=== PATIENT | male | born 1980 | race Caucasian/White ===

== ENCOUNTER 2017-04-15 08:09 | Day surgery (SDC) | payer OTHER ==
--- NOTE | 2017-04-11 12:17 | HP ---
PREOPERATIVE HISTORY AND PHYSICAL: DATE OF ADMISSION/SURGERY: 04/15/17 DATE OF OFFICE VISIT/ENCOUNTER: 04/06/17 ATTENDING SURGEON: Delicia Howe MD * (DICTATED BY BERRY JASSO) PROCEDURE: Right small finger excision mass. CHIEF COMPLAINT: Mass on right small finger. HISTORY OF PRESENT ILLNESS: This is a 36-year-old male who complains of a lump on the dorsal aspect of his right small finger. It has been present for approximately a year. He does not recall any specific injury. It is not painful, but it has caused the deformity of his finger nail and he would like to have it removed. The mass has grown overtime. He denies any associated numbness or tingling. He has consented to proceed with a right small finger excision mass. PAST MEDICAL HISTORY: Attention deficit disorder. PAST SURGICAL HISTORY: Right wrist ORIF about 10 years ago. CURRENT MEDICATIONS: 1. Ritalin 60 mg. 2. Citalopram hydrobromide. ALLERGIES: No known drug allergies. FAMILY MEDICAL HISTORY: Noncontributory. SOCIAL HISTORY: The patient is employed at the [employer] in [employer]. He is a smoker. He smokes less than a half pack a day and has done so for the past few years. He denies recreational drug use. He does drink alcohol on occasion. REVIEW OF SYSTEMS: General: Negative for fevers, chills, or night sweats. No known anesthesia problems. HEENT: Negative for headache, lightheadedness, or syncopal episodes. Integumentary: Negative for abrasions, lesions, and open wounds. Cardiothoracic: Negative for hypertension, chest pain, palpitations, and edema. Pulmonary: Negative for shortness of breath with exertion, chronic cough, or COPD. GI: Negative for nausea, vomiting, diarrhea, constipation, or GERD. : Negative for nocturia, urinary frequency or urgency, history of UTIs , or kidney problems. Musculoskeletal: Positive for current complaint. Neurological: Positive for anxiety/depression. History of seizure as an . Negative for paresthesias, numbness, or history of stroke. Endocrine: Negative for diabetes or thyroid issues. Hematologic: Negative for easy bruising, anemia, excessive bleeding, or history of DVT. Infectious Disease: Positive for history of MRSA a few years ago in his umbilicus. Negative for hepatitis C or HIV. PHYSICAL EXAMINATION GENERAL: Well-developed, well-nourished, 36-year-old male in no acute distress. VITAL SIGNS: Height 6 feet 5 inches, weight 374 pounds, blood pressure 132/80, we do not have a pulse rate. HEENT: Normocephalic, atraumatic. Pupils are equal, round, and reactive to light and accommodation. NECK: Supple. No palpable lymph nodes. Throat is clear. PULMONARY: Lungs are clear to auscultation bilaterally. No wheezes, rales, or rhonchi. CARDIOVASCULAR: Regular rate and rhythm. S1, S2. No murmurs, rubs, or gallops. No edema. ABDOMEN: Positive bowel sounds. Soft, nontender. MUSCULOSKELETAL: On exam of his right small finger, he has a large cystic mass just proximal to the finger nail. It has caused nail deformity. He has active flexion and extension at DIP joint. The cyst is not particularly tender to palpation. Skin is intact. Neurovascular function is intact. NEUROLOGICAL: Alert and oriented x3. Cranial nerves II through XII are intact. Sensation is intact to light touch. IMAGING STUDIES: X-rays of the right small finger appear normal. IMPRESSION: Ganglion cyst, right small finger. PLAN: The patient is scheduled to undergo a right small finger excision mass with Dr. Howe on 04/15/17. He will return to the office 10 to 14 days postop for followup and suture removal. A prescription for Ultracet was e-scribed to the patient's pharmacy for postoperative pain management. BERRY JASSO [id number]/[facility] #: [id number] [place]
[~2017-04-15 08:09] MED LIST: Buffered Lidocaine 0.9% SYRIN* 5 ML/SYR SYRINGE INTRADERM ONE
[2017-04-15] MEDS ORDERED: Lidocaine 1% INJ* 10 MG/ML 30 ML SDV ONE (09:28)
[2017-04-15] MEDS ORDERED: fentaNYL* 50 MCG/ML 2 ML VIAL (100 MCG VIAL) ONE (09:29)
[2017-04-15] MEDS ORDERED: Propofol* 10 MG/ML 20 ML BTL IV PUSH ONE (09:31)
[2017-04-15] MEDS ORDERED: Midazolam* 1 MG/ML 2 ML VIAL (2 MG) ONE (09:31)
[2017-04-15] MEDS ORDERED: Naloxone* 0.4 MG/ML 1 ML VIAL IV PRN (09:53)
[2017-04-15 10:14] VITALS: BP 147/75
--- NOTE | 2017-04-16 11:15 | OP ---
DATE OF OPERATION: 04/15/17 [facility] DATE OF : 78 SURGEON: Delicia Howe MD SOUND RECORDING TECHNICIAN: BERRY Nicholson ANESTHESIA: Local MAC. PRE-OP DIAGNOSIS: Right small finger mass. POST-OP DIAGNOSIS: Right small finger mass. OPERATIVE PROCEDURE: Removal of right small finger mass. ESTIMATED BLOOD LOSS: Zero. TOURNIQUET TIME: About 15 minutes. INDICATIONS FOR PROCEDURE: Diomedes is a 36-year-old man with a painful mass on the dorsal aspect of his right small finger just distal to the DIP joint, he presents for removal. DESCRIPTION OF PROCEDURE: The patient was brought to the operating room, was given a sedation anesthetic and a digital block with 10 cc of 1% plain lidocaine. The skin of his right hand and forearm was prepped and draped in the usual sterile fashion. The hand and forearm were exsanguinated and the tourniquet elevated to 250 mmHg. An H-shaped incision was made on the dorsal aspect of the DIP joint of the right little finger. Skin flap was elevated over very large ganglion cyst. The cyst was carefully dissected away from the skin in the underlying nail bed and extensor tendon and sent for pathology. The tendon was incised on either side of its insertion and a small osteophyte removed from the DIP joint. The wound was irrigated and the skin edges reapproximated with 4-0 nylon suture. The wound was dressed with Xeroform, 4x4 , Webril, and Coban. The patient tolerated the procedure well and was brought to the recovery room in good condition. [id number]/[facility] #: [id number] [facility]
== END 2017-04-15 10:40 | disposition home or self-care (01) ==
LOC: OREAST 08:09
PROVIDERS: ATTEND Orthopaedic Surgery
DX: M67.441 Ganglion, right hand (principal); F98.8 Other specified behavioral and emotional disorders with onset usually occurring in childhood and adolescence; F17.210 Nicotine dependence, cigarettes, uncomplicated
CPT/HCPCS: 88304; J2250; J2704; J3010